=== PATIENT | female | born 1960 | race Caucasian/White ===

== ENCOUNTER 2022-08-31 15:27 | Emergency (ER) | payer BC ==
[~2022-08-31] VITALS: Ht 172.7 cm; Wt 97.5 kg
[2022-08-31] MEDS ORDERED: IV NS 0.9% 1,000 ML BAG IV ONE (16:30)
[2022-08-31 16:47] LABS: BASOPHILS % (AUTO) 0.3 % (0.0-2.0); EOSINOPHILS % (AUTO) 0.4 % (0.0-6.0); HEMATOCRIT 41 % (33-45); HEMOGLOBIN 13.7 g/dL (11.5-14.8); LYMPHOCYTES # (AUTO) 1.8 K/uL (0.8-4.8); LYMPHOCYTES % (AUTO) 16.4 % (20.0-44.0); MEAN CORPUSCULAR HGB CONC 33 g/dl (31.0-36.0); MEAN CORPUSCULAR VOLUME 80 fL (82-100); MONOCYTES # (AUTO) 0.8 K/uL (0.1-1.30); MONOCYTES % (AUTO) 7.3 % (2.0-12.0); NEUTROPHILS # (AUTO) 8.4 K/uL (1.8-8.9); NEUTROPHILS % (AUTO) 75.6 % (43.0-81.0); PLATELET COUNT (AUTO) 508 K/uL (150-450); RED BLOOD CELL COUNT(AUTO) 5.08 MIL/uL (4.0-5.2); WHITE BLOOD COUNT (AUTO) 11.1 K/uL (4.3-11.0)
[2022-08-31] MEDS ORDERED: IOHEXOL-300 100 ML VIAL IV ONE (16:51)
[2022-08-31] MEDS ORDERED: IV NS 0.9% 250 ML IV ONE (16:51)
[2022-08-31 17:14] LABS: ALBUMIN 2.8 g/dL (3.4-5.0); BILIRUBIN,DIRECT 0.2 mg/dL (0.0-0.2); BILIRUBIN,TOTAL 0.5 mg/dL (0.2-1.0); CALCIUM, SERUM 8.9 mg/dL (8.5-10.1); CREATININE 0.9 mg/dL (0.6-1.3); POTASSIUM 3.6 mmol/L (3.5-5.1); TOTAL PROTEIN, SERUM 7.2 g/dL (6.4-8.2)
[2022-08-31] MEDS ORDERED: LIDOCAINE 1%-EPI 1:100,000 20 ML VIAL ONE (18:33)
[2022-08-31] MEDS ORDERED: ONDA4TAB5 PO (19:03)
[2022-08-31] MEDS ORDERED: FAMO-141 PO (19:03)
--- NOTE | 2022-08-31 19:29 | NUR ---
Pt CT Abd shows mass. MD @ bedside discussing result with patient Upper abdominal pain, Bloating, Nausea & vomiting slight resolving after receiving IVF NS bolus. Pt Discharge home/self care with emphasis on immediate folllow up with CLIENT SERVICE MANAGER concerning findings, Pt Cond remains stable
--- NOTE | 2022-08-31 19:42 | NUR ---
Patient discharged to home in stable condition. Written and verbal after care instructions given. Patient verbalizes understanding of instruction. IV removed. Catheter intact and site benign. Pressure and 4x4 applied to site. No bleeding noted. pt ambulatory with a steady gait
[2022-08-31 22:10] VITALS: BP 135/81
== END 2022-08-31 22:11 | disposition home or self-care (01) ==
LOC: ER 15:35
DX: R19.09 Other intra-abdominal and pelvic swelling, mass and lump (principal); R10.10 Upper abdominal pain, unspecified; R11.2 Nausea with vomiting, unspecified; R19.7 Diarrhea, unspecified; J90 Pleural effusion, not elsewhere classified; Z60.2 Problems related to living alone; Z79.899 Other long term (current) drug therapy
CPT/HCPCS: 99285; 74177; 96360; 71045; 85025; 80048; 83690; 80076; J7030; J7050; J3490; Q9967

== ENCOUNTER 2022-10-03 14:21 | Emergency (ER) | payer BC ==
[~2022-10-03] VITALS: Ht 172.7 cm; Wt 80.3 kg
[~2022-10-03 14:21] MED LIST: FAMO-141 PO; ONDA4TAB5 PO
--- NOTE | 2022-10-03 15:00 | NUR ---
BIBS C/O CONSTIPATED X 1 WEEK,ON COLACE AND SENNA.
[2022-10-03] MEDS ORDERED: IV NS 0.9% 1,000 ML BAG IV ONE (16:00)
--- NOTE | 2022-10-03 16:20 | NUR ---
BLOOD DRAWN AND SENT TO LAB
[2022-10-03 16:37] LABS: BASOPHILS % (AUTO) 0.4 % (0.0-2.0); EOSINOPHILS % (AUTO) 0.9 % (0.0-6.0); HEMATOCRIT 34 % (33-45); HEMOGLOBIN 10.9 g/dL (11.5-14.8); LYMPHOCYTES # (AUTO) 1.4 K/uL (0.8-4.8); LYMPHOCYTES % (AUTO) 23.4 % (20.0-44.0); MEAN CORPUSCULAR HGB CONC 32 g/dl (31.0-36.0); MEAN CORPUSCULAR VOLUME 82 fL (82-100); MONOCYTES # (AUTO) 0.5 K/uL (0.1-1.30); MONOCYTES % (AUTO) 8.6 % (2.0-12.0); NEUTROPHILS % (AUTO) 66.7 % (43.0-81.0); PLATELET COUNT (AUTO) 379 K/uL (150-450); RED BLOOD CELL COUNT(AUTO) 4.17 MIL/uL (4.0-5.2)
--- NOTE | 2022-10-03 16:45 | NUR ---
PATIENT TAKEN TO CT VIA OSMAN
[2022-10-03 17:27] LABS: ALBUMIN 3.3 g/dL (3.4-5.0); BILIRUBIN,DIRECT 0.2 mg/dL (0.0-0.2); BILIRUBIN,TOTAL 0.5 mg/dL (0.2-1.0); CALCIUM, SERUM 8.5 mg/dL (8.5-10.1); CREATININE 0.7 mg/dL (0.6-1.3); POTASSIUM 3.8 mmol/L (3.5-5.1); TOTAL PROTEIN, SERUM 6.6 g/dL (6.4-8.2)
--- NOTE | 2022-10-03 18:45 | NUR ---
IV removed. Catheter intact and site benign. Pressure and 4x4 applied to site. No bleeding noted.Patient discharged to home in stable condition. Written and verbal after care instructions given. Patient verbalizes understanding of instruction.
[2022-10-03 20:36] VITALS: BP 130/75
== END 2022-10-03 18:45 | disposition home or self-care (01) ==
LOC: ER 14:43
DX: G89.18 Other acute postprocedural pain (principal); R10.84 Generalized abdominal pain; K59.00 Constipation, unspecified; Z90.710 Acquired absence of both cervix and uterus; Z60.2 Problems related to living alone; Z79.899 Other long term (current) drug therapy
CPT/HCPCS: 99284; 74176; 96360; 85025; 80048; 83690; 80076; J7030